=== PATIENT | female | born 1970 | race Caucasian/White ===

== ENCOUNTER 2025-06-16 21:16 | Emergency (ER) | payer BC ==
[~2025-06-16] VITALS: Ht 165.1 cm; Wt 68.0 kg
[2025-06-16 21:57] LABS: PLATELET COUNT (AUTO) 179 K/uL (150-450); RED BLOOD CELL COUNT(AUTO) 4.54 MIL/uL (4.0-5.2); RED CELL DISTRIBUTION WIDTH 13.5 % (11.5-15.0); WHITE BLOOD COUNT (AUTO) 5.7 K/uL (4.3-11.0)
[2025-06-16 22:02] LABS: CALCIUM, SERUM 9.0 mg/dL (8.5-10.1); CREATININE 0.9 mg/dL (0.6-1.3); SODIUM SERUM 139 mmol/L (136-145); UREA NITROGEN, BLOOD 21 mg/dL (7-18)
[2025-06-17 00:03] VITALS: BP 141/87; TEMP 98.5; O2SAT 99
== END 2025-06-17 00:03 | disposition home or self-care (01) ==
LOC: ER 21:21
DX: R07.89 Other chest pain (principal); E03.9 Hypothyroidism, unspecified; Z88.1 Allergy status to other antibiotic agents
CPT/HCPCS: 36415; 71045-TC; 80048-TC; 84484-TC; 85025-TC